=== PATIENT | female | born 1995 | race African-American/Black ===

== ENCOUNTER 2017-01-20 12:03 | Emergency (ER) | payer SELFPAY ==
[~2017-01-20] VITALS: Ht 170.2 cm; Wt 83.9 kg
[2017-01-20 12:22] VITALS: BP 139/88
== END 2017-01-20 14:12 | disposition home or self-care (01) ==
LOC: ER 12:03
DX: H60.11 Cellulitis of right external ear (principal); E66.9 Obesity, unspecified; Z68.29 Body mass index [BMI] 29.0-29.9, adult